=== PATIENT | male | born 1990 | race Caucasian/White ===

== ENCOUNTER 2021-04-20 13:39 | Emergency (ER) | payer OTHER ==
[2021-04-20 13:45] VITALS: TEMP 97.6; BMI 21.9
[2021-04-20] MEDS ORDERED: DIPHTH,PERTUSS(ACELL),TET 0.5 ML DISP.SYRIN IM ONE ×2 (15:17→15:23)
[2021-04-20 15:41] VITALS: BP 116/78; PULSE 56
== END 2021-04-20 15:45 | disposition home or self-care (01) ==
LOC: JERFT 13:39
PROC: 3E0234Z Introduction of Serum, Toxoid and Vaccine into Muscle, Percutaneous Approach (ICD-10-PCS; principal; 2021-04-20)
PROC: 0HQFXZZ Repair Right Hand Skin, External Approach (ICD-10-PCS; principal; 2021-04-20)
DX: S61.411A Laceration without foreign body of right hand, initial encounter (principal); W26.8XXA Contact with other sharp object(s), not elsewhere classified, initial encounter
CPT/HCPCS: 90715; 99282-25